=== PATIENT | female | born 1975 ===

== ENCOUNTER 2018-05-22 00:38 | Outpatient (CLI) | payer BC | END 2018-05-22 23:59 | disposition home or self-care (01) | LOC: DIABETIC 00:38 | PROVIDERS: ATTEND Surgery | DX: E66.01 Morbid (severe) obesity due to excess calories (principal); G47.30 Sleep apnea, unspecified | CPT/HCPCS: 97802 ==

== ENCOUNTER 2018-06-05 03:35 | Outpatient (CLI) | payer BC | END 2018-06-05 23:59 | disposition home or self-care (01) | LOC: DIABETIC 03:35 | PROVIDERS: ATTEND Surgery | DX: E66.01 Morbid (severe) obesity due to excess calories (principal); G47.39 Other sleep apnea | CPT/HCPCS: 97802 ==

== ENCOUNTER 2018-07-03 03:12 | Outpatient (CLI) | payer BC | END 2018-07-03 23:59 | disposition home or self-care (01) | LOC: DIABETIC 03:12 | PROVIDERS: ATTEND Surgery | DX: E66.01 Morbid (severe) obesity due to excess calories (principal); G47.30 Sleep apnea, unspecified | CPT/HCPCS: 97802 ==

== ENCOUNTER 2018-07-24 03:39 | Outpatient (CLI) | payer BC | END 2018-07-24 23:59 | disposition home or self-care (01) | LOC: DIABETIC 03:39 | PROVIDERS: ATTEND Dietitian, Registered | DX: E66.01 Morbid (severe) obesity due to excess calories (principal); G47.30 Sleep apnea, unspecified | CPT/HCPCS: 97802 ==